=== PATIENT | female | born 1965 | race Caucasian/White ===

== ENCOUNTER 2020-08-28 17:33 | Observation (INO) ==
[2020-08-28] MEDS ORDERED: 0.9 % Sodium Chloride 1,000 ML IVC ONE (18:09)
[2020-08-28] MEDS ORDERED: Ketorolac 15 MG/ML VIAL IVP ONE (18:09)
[2020-08-28 18:26] LABS: Bilirubin,Urine Negative (Negative); Blood,Urine Negative (Negative); Clarity,Urine Clear (Clear); Color,Urine Yellow (Yellow); Glucose,Urine (UA) Normal (Normal); Ketones,Urine Negative (Negative); Leukocyte Esterase,Urine Negative (Negative); Nitrite,Urine Negative (Negative); PH,Urine 5.5 pH Units (5.0-8.0); Protein,Urine Trace mg/dL (Neg-Trace); Specific Gravity,Urine 1.025 (1.010-1.025)
[2020-08-28 19:07] LABS: Basophils # 0.1 K/mcL (0.0-0.2); Eosinophils # 0.3 K/mcL (0.0-0.6); Eosinophils % 3.7 %; Hematocrit 38.1 % (35.3-44.9); Hemoglobin 11.9 g/dL (11.5-15.4); Immature Granulocytes % 0.9 % (0-4); Lymphocytes % 29.6 %; Mean Corpuscular HGB Conc 31.2 g/dL (31.6-35.5); Mean Corpuscular Hemoglobin 28.6 pg (28.0-33.3); Mean Corpuscular Volume 91.6 fL (83.0-100.0); Mean Platelet Volume 9.4 fL (9.4-12.4); Monocytes # 0.6 K/mcL (0.0-1.3); Monocytes % 8.3 %; Neutrophils # 3.9 K/mcL (1.6-8.9); Platelet Count 250 K/mcL (140-400); Red Blood Count 4.16 M/mcL (3.82-4.97); Red Cell Distribution Width 13.6 % (11.5-14.5); Segmented Neutrophils % 56.5 %; White Blood Count 6.8 K/mcL (4.3-11.1)
[2020-08-28 19:30] LABS: Albumin 4.2 g/dL (3.5-5.7); Albumin/Globulin Ratio 1.4 (1.1-2.2); Bilirubin,Total 0.4 mg/dL (0.3-1.0); Calcium 9.4 mg/dL (8.6-10.3); Globulin 3.1 g/dL (2.4-3.5); Potassium 3.3 mEq/L (3.5-5.1); Total Protein 7.3 g/dL (6.4-8.9)
[2020-08-28] MEDS ORDERED: Acetaminophen 325 MG TABLET PO PRN (20:44)
[2020-08-28] MEDS ORDERED: Ondansetron ODT 4 MG TAB.RAPDIS SL PRN (20:44)
[2020-08-28] MEDS ORDERED: Nitroglycerin 0.4 MG TAB.SUBL SL PRN (20:48)
[2020-08-28] MEDS ORDERED: Pantoprazole 40 MG VIAL IVP ONE (20:49)
[2020-08-28 21:38] LABS: Chol/HDL Ratio 11.1 (0-4.9); Cholesterol 256 mg/dL (< 200); HDL Cholesterol 23 mg/dL (40-59); LDL Cholesterol,Calculated 172 mg/dL (< 100); Triglycerides 305 mg/dL (< 150)
[2020-08-28 21:39] LABS: Troponin I < 0.03 ng/mL (< 0.04)
[2020-08-28] MEDS ORDERED: Aspirin 325 MG TABLET PO ONE (21:44)
[2020-08-28] MEDS ORDERED: cefTRIAXone 2,000 MG in Water for inj. (sterile) 20 ML IVP SCH (22:00)
[2020-08-28] MEDS: metroNIDAZOLE 500 MG TABLET PO SCH (22:46)
[2020-08-29 02:43] LABS: Hematocrit 35.6 % (35.3-44.9); Hemoglobin 11.1 g/dL (11.5-15.4); Mean Corpuscular HGB Conc 31.2 g/dL (31.6-35.5); Mean Corpuscular Hemoglobin 28.6 pg (28.0-33.3); Mean Corpuscular Volume 91.8 fL (83.0-100.0); Mean Platelet Volume 9.8 fL (9.4-12.4); Platelet Count 229 K/mcL (140-400); Red Blood Count 3.88 M/mcL (3.82-4.97); Red Cell Distribution Width 13.7 % (11.5-14.5)
[2020-08-29 02:52] LABS: BUN/Creatinine Ratio 16 (6-26); Blood Urea Nitrogen 20 mg/dL (6-20); Calcium 8.4 mg/dL (8.6-10.3); Carbon Dioxide 26 mEq/L (23-29); Chloride 107 mEq/L (98-107); Glucose 114 mg/dL (70-105); Osmolality,Calculated 295 (280-300); Potassium 3.1 mEq/L (3.5-5.1); Sodium 141 mEq/L (136-145); Troponin I < 0.03 ng/mL (< 0.04); eGFR For African Americans 52 (> 60); eGFR For Non-African Americans 43 (> 60)
[2020-08-29] MEDS ORDERED: Ringers Solution, Lactated 500 ML IVC ONE (04:08)
[2020-08-29] MEDS ORDERED: Potassium Chloride 40 MEQ, Lidocaine 1% 2 ML in 0.9 % Sodium Chloride 500 ML IVPB ONE (04:30)
[2020-08-29] MEDS ORDERED: Regadenoson 0.4 MG/5 ML SYRINGE IVP ONE (05:39)
[2020-08-29] MEDS ORDERED: *HR* Enoxaparin 40 MG/0.4 ML SYRINGE SQ SCH (06:00)
[2020-08-29] MEDS ORDERED: Pantoprazole 40 MG VIAL IVP SCH (06:00)
[2020-08-29] MEDS ORDERED: Aspirin 81 MG TAB.CHEW PO SCH (09:00)
[2020-08-29] MEDS ORDERED: Loratadine 10 MG TABLET PO SCH (09:30)
[2020-08-29] MEDS ORDERED: 0.9 % Sodium Chloride 1,000 ML IVC SCH (12:30)
[2020-08-29 12:34] VITALS: BP 106/76
[2020-08-29] MEDS: metroNIDAZOLE 500 MG TABLET PO SCH (12:39)
[2020-08-29] MEDS ORDERED: Gabapentin 300 MG CAPSULE PO SCH (18:00)
== END 2020-08-29 15:45 | disposition home or self-care (01) ==
LOC: 3BNU 17:33 → EMEROOARM 17:33 → SUATTDRO 21:13 → 3BNU 21:14
PROVIDERS: ADMIT Family Medicine; ATTEND Internal Medicine